=== PATIENT | female | born 1985 | race Caucasian/White ===

== ENCOUNTER 2022-01-12 12:20 | Emergency (ER) | payer OTHER ==
[~2022-01-12] VITALS: Ht 167.6 cm; Wt 74.4 kg
[2022-01-12] MEDS ORDERED: KETOROLAC TROMETHAMINE 10 MG TAB PO NR (12:45)
[2022-01-12] MEDS ORDERED: GABAPENTIN300 MG PO (14:35)
[2022-01-12] MEDS ORDERED: PREDNISONE20 MG PO (14:37)
[2022-01-12 14:43] VITALS: BP 135/78
== END 2022-01-12 14:44 | disposition home or self-care (01) ==
LOC: ER 12:24
DX: M54.41 Lumbago with sciatica, right side (principal)
CPT/HCPCS: 72100; 81025; 99284